=== PATIENT | male | born 1975 | race Caucasian/White ===

== ENCOUNTER 2018-03-27 19:09 | Emergency (ER) | payer OTHER ==
[~2018-03-27] VITALS: Ht 188 cm; Wt 70.3 kg
== END 2018-03-27 19:50 | disposition home or self-care (01) ==
LOC: ER 19:09
DX: H61.21 Impacted cerumen, right ear (principal); F17.200 Nicotine dependence, unspecified, uncomplicated
CPT/HCPCS: 99282